=== PATIENT | female | born 1975 | race Caucasian/White ===

== ENCOUNTER 2019-05-04 19:28 | Emergency (ER) | payer MEDICAID ==
[~2019-05-04] VITALS: Ht 157.5 cm; Wt 90.7 kg
[~2019-05-04 19:28] MED LIST: AMOXAPINE100 MG; LAC PO; OMNICEF300 MG PO; PHECLUD; ZIT250 PO
[2019-05-04 19:53] VITALS: Ht 157.5 cm; Wt 90.7 kg
[2019-05-04 23:01] VITALS: BP 138/93
== END 2019-05-04 23:01 | disposition home or self-care (01) ==
LOC: ED 19:28
DX: S81.011A Laceration without foreign body, right knee, initial encounter (principal); F17.210 Nicotine dependence, cigarettes, uncomplicated; W22.03XA Walked into furniture, initial encounter; Y93.89 Activity, other specified; Y92.89 Other specified places as the place of occurrence of the external cause; Y99.8 Other external cause status
CPT/HCPCS: 90715; J2001

== ENCOUNTER 2019-12-01 20:35 | Emergency (ER) | payer MEDICAID ==
[~2019-12-01] VITALS: Ht 157.5 cm; Wt 98.0 kg
[2019-12-01 20:53] VITALS: Ht 157.5 cm; Wt 98.0 kg
[2019-12-01 23:37] VITALS: BP 139/83
== END 2019-12-01 23:37 | disposition home or self-care (01) ==
LOC: ED 20:35
DX: M54.41 Lumbago with sciatica, right side (principal)